=== PATIENT | male | born 1975 | race Caucasian/White ===

== ENCOUNTER 2024-06-18 23:52 | Emergency (ER) | payer OTHER ==
[2024-06-19] MEDS ORDERED: Ibuprofen 800 MG TAB ONE (00:15)
== END 2024-06-19 00:29 | disposition home or self-care (01) ==
LOC: BURERS 23:52
DX: J10.1 Influenza due to other identified influenza virus with other respiratory manifestations (principal); E11.9 Type 2 diabetes mellitus without complications; I10 Essential (primary) hypertension
CPT/HCPCS: 99282